=== PATIENT | female | born 1980 | race Caucasian/White ===

== ENCOUNTER 2016-10-24 04:58 | Emergency (ER) | payer BC ==
[~2016-10-24] VITALS: Ht 182.9 cm; Wt 79.7 kg
[2016-10-24 04:58] VITALS: Ht 182.9 cm; Wt 79.7 kg
[~2016-10-24 04:58] MED LIST: BENA5TAB PO; BENZ100C97 PO; CYAN500T2 PO; LEVO175T9 PO; NIAC500T22 PO; PROP80CA2 PO; SUMA25TA PO; [UNRECOGNIZED DRUG - OTHER] PO
--- OUTSIDE RECORDS SUMMARY | 2016-10-24 05:02 | XMS REPORT | Continuity of Care Document ---
Author Author [facility] Organization [facility] Address Unknown Phone Unavailable Care Team Providers Care Assistant Community Manager Name Role Phone CHRISTOPHER ORNELAS MD Primary Care Physician [phone] Insurance Providers Guarantor Massiel Jara Address [address] [place] [address] Email [email or web address] Payer [facility] Policy Number [id number] Subscriber's Name Temo Jara Relationship 01 Spouse Group Number [id number] Chief Complaint and Reason for Visit Chief Complaint Cough,Fever,Flu,URI Reason for Visit Viral syndrome Problems Active Problems Medical Problem Onset Date Status Cephalgia consistent with Migraine Unknown Acute Cephalgia consistent with Migraine Unknown Acute Viral syndrome Unknown Acute Medications Current Home Medications Medication Dose Units Route Directions Days Qty Instructions Start Date Benazepril Hcl 5 Mg Tablet 5 Mg Oral Twice A Day 03/20/13 Benzonatate (Tessalon Perle) 100 Mg Capsule 100 Mg Oral Every 8 Hours for Cough 5 Days 15 Capsule 08/17/16 Cyanocobalamin (Vitamin B-12) (Vitamin B-12) 500 Mcg Tablet 1 Tab Oral Daily 02/11/16 Levothyroxine Sodium 175 Mcg Tablet 175 Mcg Oral Before Breakfast Once daily before breakfast. 02/11/16 Magsalt 1 1 Tab Oral As Needed 07/23/13 Niacinamide (Niacin) 500 Mg Tablet 1 Tab Oral Daily 02/11/16 Propranolol Hcl 80 Mg Cap.sa.24h 80 Mg Oral Daily 02/11/16 Sumatriptan (Imitrex) 25 Mg Tablet 1 Tab Oral As Needed 02/11/16 Past Home Medications Medication Directions Ordered Status Ascorbic Acid (Vitamin C) 100 Mg Tablet, 100 Mg Oral 09/17/09 Discontinued Benazapril , 09/17/09 Discontinued Calcium 500 Mg Tablet, 500 Mg Oral Daily 09/17/09 Discontinued Ciprofloxacin Hcl 500 Mg Tablet, 500 Mg Oral Twice A Day 03/20/13 Discontinued Levothyroxine Sodium 200 Mcg Tablet, 1 Tab Oral Daily 03/20/13 Discontinued Vits W-Ca,Fe,Fa(<1MG) () 1 Tab Tablet, 1 Tab Oral Daily 03/07 Discontinued Synthroid , 09/17/09 Discontinued Social History Social History Problem Response Recorded Date/Time Onset Date Status Hx Substance Use No 02/14/2016 9:36am Not Applicable Not Applicable Hx Alcohol Use Y OCC 02/14/2016 9:36am Not Applicable Not Applicable Has the pt used tobacco in the last 12 months No 02/14/2016 9:36am Not Applicable Not Applicable Hospital Discharge Instructions No hospital discharge instructions. Plan of Care Discharge Date 08/17/16 12:15pm Disposition 01 DISCHARGED HOME, SELF-CARE Condition at Discharge Stable Instructions/Education Provided DI for Viral Upper Respiratory Infection -- Adult Prescriptions See Medication Section Referrals CHRISTOPHER ORNELAS MD Address: [address] [place] [id number] Functional Status No functional status results. Allergies, Adverse Reactions, Alerts Allergen Type Severity Reaction Status Last Updated No Known Drug Allergies Allergy Unknown Active 08/17/16 Immunizations Query Response on File Recorded Date/Time Hx Influenza Vaccination Y APR 2015 02/14/16 9:36am Hx Pneumococcal Vaccination No 02/14/16 9:36am Hx Influenza Vaccination Y APR 2015 02/14/16 9:36am Influenza Vaccine Hx APR 2016 08/17/16 11:45am Tetanus Diptheria Vaccine History UP TO DATE 08/17/16 11:45am Vital Signs Acute Vital Signs Vital Response Date/Time Temperature (Fahrenheit) 97.7 deg F (96.8 - 99.1) 08/17/2016 11:50am Temperature (Calculated Celsius) 36.98728 degrees C (36.0 - 37.3) 08/17/2016 11:50am Pulse Rate (adult) 94 bpm (60 - 100) 08/17/2016 11:50am Respiratory Rate 14 breaths/min (10 - 20) 08/17/2016 11:50am O2 Sat by Pulse Oximetry 98 % (90 - 100) 08/17/2016 11:50am Blood Pressure 122/85 mm Hg 08/17/2016 11:50am Height (Inches) 72.00 inches 08/17/2016 11:50am Weight (Kilograms) 84.000 kg 08/17/2016 11:50am Body Mass Index (BMI) 25.0 08/17/2016 11:50am Results Laboratory Results Test Name Result Units Flags Reference Collection Date/Time Result Date/ Time Comments Influenza Type A Antigen NEGATIVE NEGATIVE 08/17/2016 12:00pm 2016 12:21pm Negative for Flu A protein antigen. Assay sensitivity is 90%. Influenza Type B Antigen NEGATIVE NEGATIVE 08/17/2016 12:00pm 2016 12:21pm Negative for Flu B protein antigen. Assay sensitivity is 90%. Procedures Procedure Status Date Provider(s) Injection for shoulder x-ray Completed 06/27/16 TEMO PIERRE MD Mri joint upr extrem w/dye Completed 06/27/16 Needle localization by xray Completed 06/27/16 GADAVIST 10ML SDV - Contrast,Gadavist 10ml Completed 06/27/16 079970"INFUSION, NORMAL SALINE SOLUTION , 250 CC" Completed 06/27/16 [id number]"HIGH OSMOLAR CONTRAST MATERIAL, 250-299 MG/ML IODINE Completed Encounters Encounter Location Arrival/Admit Date Discharge/Depart Date Attending Provider Departed Emergency Room [facility] 08/17/16 11:38am 08/17/16 12: 15pm PRISCILLA MCFARLANE APRN Registered Clinic [facility] 06/27/16 12:35pm FRANDY TEE MD Recent Diagnosis
--- NOTE | 2016-10-24 05:12 | NUR ---
PROVIDER DR CALIX IN ROOM TO SEE PT
[2016-10-24] MEDS ORDERED: RIZA10TA24 PO (05:16)
--- NOTE | 2016-10-24 05:19 | ERPDOC ---
Departure Disposition Decision Date: Oct 24, 2016 Disposition Decision Time: 05:19 Disposition: 01 DISCHARGED HOME, SELF-CARE Impression Impression Impression: Primary Impression: Cephalgia consistent with Migraine Severity: Moderate Condition: Stable Seen By: Physician only Referrals: CHRISTOPHER ORNELAS MD (PCP/Family) Patient Instructions: Migraine Headache (ED) Problems/Meds/Labs Reviewed?: Yes Medications reviewed and manag: Yes Additional Instructions: Please see your primary care provider in the next day or 2 to follow-up on the headache. Follow up care ordered?: Yes Mental Status: Alert, Oriented HPI - Headache General Chief Complaint: Headache Stated Complaint: migraine Time Seen by Provider: 05:11 HPI - Headache Initial Comments 36-year-old female presents with migraine which started yesterday morning. She states she has taken 2 doses of Imitrex and 2 doses of Lortab which have not worked. She has had nausea vomiting, headache which she rates as 9 out of 10, photophobia, and has been up all night crying with headache. She states last time she was treated was a little over a month ago she had 5 days of Demerol shots in the clinic. She has tried Zofran which has not helped with the nausea. Allergies: Coded Allergies: No Known Drug Allergies (Verified Allergy, Unknown, 08/17/16) Past History Past Medical History Pt denies signifigant PMH Hx Echocardiogram: No Female: other Neurological: headaches, migraines Surgical History Reproductive/: tubal ligation Family History Family PMH: FOUND: other Vaccines Hx Influenza Vaccination: Yes (APR 2015) Hx Pneumococcal Vaccination: No Social History Smoking Status: Never smoker Does patient use chewing tobac: No Substance Use Type: does not use Alcohol Intake: none Record Review Pertinent history updated: Yes Review of Systems GI Upper Abdomen: see HPI Neurological General: see HPI All other Systems All Other Systems: Reviewed and Negative Physical Exam General General Nourishment: well nourished, well developed Distress Description Patient is tearful, with headache Vitals and Pain First Documented Vital Signs Date Time Temp Pulse Resp B/P Pulse Ox O2 Delivery O2 Flow Rate FiO2 10/24/16 04:58 97.8 66 16 137/84 99 Room Air Weight: Kilograms: 79.700 Height (feet): 6 Height (inches): 0 Triage Pain Scale: Normal Exams: Head: Normocephalic w/o trauma Eyes: Pupils are PERRLA w/ EOMI, No scleral icterus, irritation, or foreign bodies noted Neck: Full range of motion, without adenopathy, JVD, bruits or thyromegaly Chest/Resp: Clear all mcdowell, with good airflow, and symmetry bilaterally CV: Regular rate and rhythm, without murmur or gallop, Pulses 2+ all extremities, capillary refill, <2 seconds all ext., no pedal edema noted Neurologic: Patient is alert, and oriented, cranial nerves, motor/sensory/ cerebellar, exams w/o gross deficits, to observation Psychiatric: Patient exhibits, appropriate attention, emotion and affect Differential Diagnoses Considering: Cervical Strain, CVA - Thrombotic, CVA - Hemorrhagic, Headache, Headache - Migraine, Headache - Tension/Muscle, Meningitis, Sinusitis - Frontal , Sub-arachnoid Hemorrhage, Temporal Arteritis, Toothache, Trigeminal Neuralgia , Vasculitis Progress Results/Orders Orders Procedure Category Date Status Time Iv Lock (Ed Only) EDM 10/24/16 Transmitted 05:21 Normal Saline (Normal PHA 10/24/16 Complete Saline Iv) 05:30 Orphenadrine (Norflex) PHA 10/24/16 Complete 05:30 Promethazine PHA 10/24/16 Complete (Phenergan) 05:30 Ketorolac (Toradol) PHA 10/24/16 Complete 05:30 Morphine Sulfate PHA 10/24/16 Complete (Morphine) 05:30 Medications Current ED Medications Sodium Chloride (Normal Saline IV) 1,000 ml @ 0 mls/hr Q0M ONCE IV Last administered on 10/24/16 05:41; Start 10/24/16 at 05:30; Stop 10/24/16 at 05:32 ; Status DC Orphenadrine Citrate (Norflex) 60 mg O ONCE IV Last administered on 10/24/16 05:48; Start 10/24/16 at 05:30; Stop 10/24/16 at 05:32; Status DC Promethazine HCl (Phenergan) 25 mg O ONCE IV Last administered on 10/24/16 05 :43; Start 10/24/16 at 05:30; Stop 10/24/16 at 05:32; Status DC Ketorolac Tromethamine (Toradol) 30 mg O ONCE IV Last administered on 05:41; Start 10/24/16 at 05:30; Stop 10/24/16 at 05:32; Status DC Morphine Sulfate (Morphine) 2 mg O ONCE IV Last administered on 10/24/16t 05: 46; Start 10/24/16 at 05:30; Stop 10/24/16 at 05:32; Status DC Progress Progress I explained that we are trying to minimize use of narcotics in the emergency department. Patient will have 1 L of normal saline IV, morphine 2 mg IV, Toradol 30 mg IV, Norflex 60 mg IV and Phenergan 25 mg IV. She did have an MRI one year ago which was normal of the brain. ALEJA CALIX MD Oct 24, 2016 05:19
[2016-10-24] MEDS ORDERED: NORMAL SALINE 1,000 ML IV ONE (05:30)
[2016-10-24] MEDS ORDERED: KETOROLAC 30mg/ml INJECTION IV ONE (05:30)
[2016-10-24] MEDS ORDERED: ORPHENADRINE 60mg/2ml INJECTION IV ONE (05:30)
[2016-10-24] MEDS ORDERED: PROMETHAZINE 25 MG INJECTION IV ONE (05:30)
[2016-10-24] MEDS ORDERED: MORPHINE SULFATE 2 MG SYRINGE IV ONE (05:30)
--- NOTE | 2016-10-24 05:40 | NUR ---
IVL IVL STARTED
--- NOTE | 2016-10-24 05:55 | NUR ---
MEDS AL IV MEDS ARE GIVEN TO DECREASE MIGRAINE PA IN. IVF INFUSING
--- NOTE | 2016-10-24 05:59 | NUR ---
STATUS WENT TO WAITING ROOM TO GIVE REPORT. HE WILL BE BACK AROUND 7 AND PICK HER UP
[2016-10-24 06:52] VITALS: BP 134/88; PULSE 61; RESP 16; TEMP 98; O2SAT 100
--- NOTE | 2016-10-24 06:52 | NUR ---
DISMISSAL INSTRUCTIONS REVIEWED. PT FEELS BETTER. DISCHARGED AMB
== END 2016-10-24 06:52 | disposition home or self-care (01) ==
LOC: ED 04:58
DX: R51 Headache (principal); R11.2 Nausea with vomiting, unspecified; H53.149 Visual discomfort, unspecified
CPT/HCPCS: 96361; 96374; 96375; 99284; J1885; J2360; J2550; J7030

== ENCOUNTER 2017-02-10 06:08 | Inpatient (IN) ==
--- NOTE | 2017-02-10 06:28 | Emergency Department Report ---
Abdominal Pain HPI - General Chief Complaint: Back Pain/Injury Stated Complaint: kidney pain Time Seen by Provider: 02/10/17 06:28 Source: patient Mode of arrival: ambulatory Limitations: no limitations - History of Present Illness HPI narrative: Patient is a 36-year-old female presents to the emergency department for evaluation of bilateral flank pain. Patient started developing urinary symptoms of urgency and frequency on Sunday, did not do anything about it. This morning approximately 1 AM patient woke up with severe bilateral flank pain , right greater than left. Patient's had subjective fevers and chills nausea no vomiting no change in bowel movements. Patient's pain quickly became severe this morning so she decided present to the ER for evaluation currently complaining of 10 out of 10 bilateral flank pain, right greater than left MD complaint: flank pain Onset (ago): hour(s) (6) Consistency: constant Location: L flank, R flank Severity: severe Severity scale (1-10): 10 Quality: stabbing Radiation: none Migration to: no migration Relieving factors: nothing Associated symptoms: nausea, fever, chills, dysuria - Related Data Home Medications Medication Instructions Recorded Confirmed Benazepril HCl 5 mg PO BID #0 03/20/13 02/10/17 Cyanocobalamin (Vitamin B-12) 1 tab PO DAILY #0 tab 02/11/16 02/10/17 [Vitamin B-12] Propranolol HCl [Propranolol HCl 80 mg PO DAILY #0 cap 02/11/16 02/10/17 ER] Rizatriptan Benzoate [Maxalt] 1 tab PO PRN PRN #9 tab 10/24/16 calcium carbonate-vitamin D3 600 1 cap PO DAILY cap 01/05/17 02/10/17 mg calcium-200 unit capsule cholecalciferol (vitamin D3) 1,000 1,000 unit PO BID 01/05/17 02/10/17 unit capsule multivitamin capsule 1 cap PO QAM 01/05/17 02/10/17 ondansetron HCl 4 mg tablet 4 mg PO Q4H PRN 01/05/17 02/10/17 Levothyroxine Sodium [Levoxyl] 150 mcg PO DAILY 02/10/17 02/10/17 Previous Rx's Medication Instructions Recorded sertraline 25 mg tablet 25 mg PO Q24H #90 tab 06/09/17 alprazolam 0.25 mg tablet 0.25 mg PO BID PRN #30 tab 01/07/17 Allergies Allergy/AdvReac Type Severity Reaction Status Date / Time No Known Drug Allergies Allergy Unknown Verified 02/10/17 06:18 Review of Systems Constitutional: Reports: fever, chills. Denies: weakness ENT: Denies: ear pain, throat pain, dental pain, congestion Cardiovascular: Denies: chest pain, palpitations Respiratory: Denies: cough, dyspnea, wheezes Gastrointestinal: Reports: abdominal pain, nausea. Denies: vomiting, diarrhea, constipation Genitourinary: Reports: urgency, dysuria, frequency Musculoskeletal: Reports: back pain Neurological: Denies: headache, weakness, numbness Psychiatric: Denies: anxiety, depression Endocrine: Denies: fatigue [facility] Medical History (Last Updated 01/05/17 @ 09:27 by Meghna June Liliane) CKD (chronic kidney disease) (Chronic Medical) Gestational diabetes (Chronic Medical) HTN (hypertension) (Chronic Medical) Hypothyroidism (Chronic Medical) Polycystic kidney (Chronic Medical) Pre-eclampsia (Chronic Medical) Surgical History: . Tubal ligation Family History: Family History Paternal Grandfather Type 1 diabetes Maternal Grandmother Rheumatoid arthritis Daughter Juvenile rheumatoid arthritis Polycystic kidney Paternal Grandmother Rheumatoid arthritis Mother , 51 Polycystic kidney Myocarditis HTN (hypertension) Renal failure Kidney transplant recipient - Social History Smoking status: Never smoker Substance use type: does not use Alcohol intake frequency: does not drink Physical Exam - General General appearance: alert, in distress - Head Head exam: normocephalic, normal inspection - ENT ENT exam: Present: normal exam, normal oropharynx - Neck Neck exam: Present: full ROM - Chest Chest inspection: Present: symmetric chest wall rise. Absent: tenderness - Respiratory Respiratory exam: Present: normal lung sounds bilaterally. Absent: respiratory distress, wheezes, stridor - Cardiovascular Cardiovascular exam: Present: regular rate, normal rhythm, normal heart sounds - Abdominal Exam Abdominal exam: Present: soft, tenderness (mild diffuse tenderness). Absent: distention - Extremities Exam Extremities exam: Present: full ROM - Back Exam Back exam: Present: full ROM - Skin Skin exam: Present: warm, dry, intact - Neurological Exam Neurological exam: Present: alert, oriented X3 Course - Consultations Consultation #1: Dr. Jose F Hector, primary care physician Time: 08:35 (no response) Consultation #2: Dr. Jose F Hector Time: 09:04 (no response) Consultation #3: Dr. Hector Time: 09:31 (Dr. Hector states he is checked out to the hospitalist service) Additional Consultation(s): Hospitalist service, 09:37 Dr. Varghese will admit Vital Signs Temperature 98.2 F 02/10/17 06:09 Pulse Rate 56 L 02/10/17 06:09 Respiratory Rate 24 02/10/17 06:09 Blood Pressure 108/55 02/10/17 06:09 Pulse Oximetry 100 02/10/17 06:09 Temperature 98.2 F 02/10/17 06:09 Pulse Rate 56 L 02/10/17 06:09 Respiratory Rate 24 02/10/17 06:09 Blood Pressure 108/55 02/10/17 06:09 Pulse Oximetry 100 02/10/17 06:09 Abdominal Pain - Differential Diagnosis Differential diagnosis: Likely: abdominal pain, acute appendicitis, calculus of kidney, constipation, diverticulitis, other (pyelonephritis), small bowel obstruction - Medical Records Attestation: I reviewed the patient's medical records. - Lab Data Attestation: I reviewed the patient's lab results. Result diagrams: 02/10/17 06:34 02/10/17 06:34 - Radiology Data Attestation: I reviewed the patient's radiology results. CT scan abdomen noncontrast: Large innumerable cysts, no obvious stones Disposition Clinical Impression: Pyelonephritis Disposition: 02 To [facility] [place] Acute Care Condition: Stable Prescriptions: No Action Rizatriptan Benzoate [Maxalt] 1 tab PO PRN PRN #9 tab PRN Reason: HEADACHE Levothyroxine Sodium [Levoxyl] 150 mcg PO DAILY Benazepril HCl 5 mg PO BID #0 Propranolol HCl [Propranolol HCl ER] 80 mg PO DAILY #0 cap Cyanocobalamin (Vitamin B-12) [Vitamin B-12] 1 tab PO DAILY #0 tab Referrals: Vince Eduardo MD [Family Provider] - Time of Disposition: 09:49 - Seen By: physician
[2017-02-10] MEDS ORDERED: ONDANSETRON 4 MG/2 ML INJECTION IVP ONE (06:29)
[2017-02-10] MEDS ORDERED: MORPHINE SULFATE 4 MG SYRINGE IVP ONE ×2 (06:29→09:47)
[2017-02-10] MEDS ORDERED: NS 1,000 ML IV ONE (06:30)
[2017-02-10] MEDS ORDERED: CIPROFLOXACIN PB 400 MG/200 ML BAG IV SCH ×2 (07:15→11:15)
[2017-02-10] MEDS: SALINE FLUSH 10ml SYRINGE IVF PRN ×2 (10:10→21:15)
[2017-02-10 10:50] VITALS: BMI 25.4
[2017-02-10] MEDS ORDERED: ONDANSETRON 4 MG/2 ML INJECTION IVP PRN (11:02)
--- NOTE | 2017-02-10 11:12 | History & Physical Report ---
History of Present Illness Date: 02/10/17 Chief complaint: right-sided flank pain HPI: This is a 36-year-old female presents with right-sided flank pain that progressively been getting worse past week. She states that this felt like a cyst rupture that she's had in the past along with a kidney infection that she 's had in the past. She states that she was taking antibiotics (amoxicillin) for a tooth infection and while she was taking this the pain improved. However, once that finished the pain came back. She complains of nausea and vomiting. She states that she has intense pain with urination but no blood. She denies fever chills or night sweats. She denies chest pain shortness of breath or diaphoresis. She denies any diarrhea or constipation. She states that she takes her medications as prescribed. Review of Systems All systems: reviewed and no additional remarkable complaints except as stated PFSH Patient Stated Medical History Migraine Yes Hypertension Yes: ON MEDS Gastroesophageal Reflux Yes Disease Other Yes: HX KIDNEY INFECTIONS Other Musculoskeletal Yes: SCOLIOSIS Depression Yes Post Traumatic Stress Disorder Yes Clinic Medical History (Last Updated 02/10/17 @ 09:49 by Harvey Gutierrez MD) CKD (chronic kidney disease) (Chronic Medical) Gestational diabetes (Chronic Medical) HTN (hypertension) (Chronic Medical) Hypothyroidism (Chronic Medical) Polycystic kidney (Chronic Medical) Pre-eclampsia (Chronic Medical) Surgical History: . Tubal ligation Family History: Family History Paternal Grandfather Type 1 diabetes Maternal Grandmother Rheumatoid arthritis Daughter Juvenile rheumatoid arthritis Polycystic kidney Paternal Grandmother Rheumatoid arthritis Mother , 51 Polycystic kidney Myocarditis HTN (hypertension) Renal failure Kidney transplant recipient - Social History Smoking status: Never smoker Alcohol intake frequency: a few times a month Medications Home Medications Medication Instructions Recorded Confirmed Type Benazepril HCl 5 mg PO BID #0 03/20/13 02/10/17 History Cyanocobalamin (Vitamin B-12) 1 tab PO DAILY #0 tab 02/11/16 02/10/17 History [Vitamin B-12] Propranolol HCl [Propranolol HCl 80 mg PO DAILY #0 cap 02/11/16 02/10/17 History ER] Rizatriptan Benzoate [Maxalt] 1 tab PO PRN PRN #9 tab 10/24/16 02/10/17 History calcium carbonate-vitamin D3 600 1 cap PO DAILY cap 01/05/17 02/10/17 History mg calcium-200 unit capsule cholecalciferol (vitamin D3) 1,000 1,000 unit PO BID 01/05/17 02/10/17 History unit capsule multivitamin capsule 1 cap PO QAM 01/05/17 02/10/17 History ondansetron HCl 4 mg tablet 4 mg PO Q4H PRN 01/05/17 02/10/17 History Levothyroxine Sodium [Levoxyl] 150 mcg PO DAILY 02/10/17 02/10/17 History Allergies Allergy/AdvReac Type Severity Reaction Status Date / Time No Known Drug Allergies Allergy Unknown Verified 02/10/17 06:18 Exam Vital Signs: Temperature 96.4 F L 02/10/17 10:30 Pulse Rate 53 L 02/10/17 10:30 Respiratory Rate 18 02/10/17 10:30 Blood Pressure 120/74 02/10/17 10:30 Pulse Oximetry 96 02/10/17 10:30 Oxygen Delivery Method Room Air Gen.-awake alert oriented 3, no acute distress. HEENT-PERRLA EOMI. Neck-supple, no JVD, no bruits. Cardiovascular-regular rate and rhythm, no murmurs rubs or gallops. Lungs-clear to auscultation bilaterally. Abdomen-tender to palpation in the right flank and suprapubic region. Extremities-no edema cyanosis or clubbing. Neurological-nonfocal. Rectal-deferred. Genitourinary-deferred. Skin-warm dry and intact without any evidence of rashes. Height: 6 ft Weight: 85 kg Body Mass Index: 25.4 Results - Labs CBC & Chem 7: 02/10/17 06:34 02/10/17 06:34 Assessment and Plan Assessment and Plan: # Acute Pyelonephritis - history of enterobacter in the past which was sensitive to cipro. Will start cipro, IVF and antiemetics. Advance diet as tolerated. # CKD stage III - secondary to Polycystic KD. Monitor. # Polycystic KD - treat supportively and monitor renal function. # HTN - continue BB. Hold ACEI. Sepsis Assessment - Evaluation Sepsis screening result: No Definite Risk Hospital Course Summary Disclaimer: The visit summary below is not to be considered part of the above Progress Note.
[2017-02-10] MEDS: NS 1,000 ML IV SCH ×2 (11:15→22:28)
[2017-02-10] MEDS: MORPHINE SULFATE 2 MG SYRINGE IVP PRN ×2 (15:15→21:15)
[2017-02-10] MEDS: CIPROFLOXACIN PB 400 MG/200 ML BAG IV SCH (18:38)
[2017-02-11] MEDS: CIPROFLOXACIN PB 400 MG/200 ML BAG IV SCH ×2 (06:25→18:51)
[2017-02-11] MEDS: LEVOTHYROXINE 150 MCG TABLET PO SCH (06:25)
[2017-02-11] MEDS: NS 1,000 ML IV SCH ×2 (09:39→21:38)
[2017-02-11] MEDS: PROPANOLOL 80 MG PO SCH (09:40)
--- NOTE | 2017-02-11 10:35 | CT Scan Report ---
Indication: bilateral flank pain, family history stones PROCEDURE: CT renal wo con (stone bogdan): Encounter: Initial Comparison: Renal CT dated March 20, 2013 Technique: Axial CT images were performed through the abdomen and pelvis without intravenous contrast. Coronal and sagittal two-dimensional reformats. Automated Exposure Control and Iterative Reconstruction dose reducing techniques were utilized. Findings: Atelectasis in the lung bases. Findings of autosomal dominant polycystic kidney disease with innumerable cysts throughout both kidneys including multiple hyperdense and partially calcified cysts. Numerous hepatic cysts. The gallbladder is unremarkable. The spleen, pancreas and adrenal glands are within normal limits. Small possible renal stones versus partially calcified cysts. No obvious ureteral stone or hydronephrosis. Bladder appears normal. Tubal ligation clips seen in the pelvis. Prominent right ovarian cyst measuring 4.6 cm in diameter. No evidence of a bowel obstruction. Bone windows show significant scoliotic curvature in the spine. Impression: Polycystic kidney disease. Right ovarian cyst. No clear acute disease process. There is a preliminary report by [facility]. .
--- NOTE | 2017-02-11 11:10 | Progress Note ---
Subjective: Feels better. Still requiring narcotics for pain control and she does not want to take them. Nausea is resolved. Flank pain is resolved. Case discussed with family at bedside. Objective Vital signs: Temperature 97.5 F 02/11/17 08:10 Pulse Rate 55 L 02/11/17 08:10 Respiratory Rate 16 02/11/17 08:10 Blood Pressure 110/64 02/11/17 08:10 Pulse Oximetry 96 02/11/17 08:10 Oxygen Delivery Method Room Air Gen.-awake alert oriented 3, no acute distress. HEENT-PERRLA EOMI. Neck-supple, no JVD, no bruits. Cardiovascular-regular rate and rhythm, no murmurs rubs or gallops. Lungs-clear to auscultation bilaterally. Abdomen-benign. Extremities-no edema cyanosis or clubbing. Neurological-nonfocal. Rectal-deferred. Genitourinary-deferred. Skin-warm dry and intact without any evidence of rashes. Weight: 85.3 kg Results - Labs CBC & Chem 7: 02/11/17 08:26 02/11/17 04:56 Assessment and Plan Assessment and Plan: # Acute Pyelonephritis - E Coli. Clinically improving. Continue cipro and IVF. # CKD stage III - secondary to Polycystic KD. Stable. # Polycystic KD - treat supportively and monitor renal function. # HTN - continue BB. Hold ACEI. # NAG Metabolic acidosis - continue IVF. # Dispo - DC home tomorrow if pain controlled off of narcotics. Sepsis Assessment - Evaluation Sepsis screening result: No Definite Risk Hospital Course Summary Disclaimer: The visit summary below is not to be considered part of the above Progress Note.
[2017-02-11] MEDS: ACETAMINOPHEN 325 MG TABLET PO PRN (13:03)
[2017-02-12] MEDS: CIPROFLOXACIN PB 400 MG/200 ML BAG IV SCH (06:25)
[2017-02-12] MEDS: LEVOTHYROXINE 150 MCG TABLET PO SCH (06:25)
[2017-02-12] MEDS: NS 1,000 ML IV SCH (06:27)
[2017-02-12] MEDS: ACETAMINOPHEN 325 MG TABLET PO PRN (06:36)
[2017-02-12 07:24] VITALS: PULSE 67; RESP 16; TEMP 99.1; O2SAT 97
[2017-02-12] MEDS: PROPANOLOL 80 MG PO SCH (09:02)
[2017-02-12 09:05] VITALS: BP 122/72
--- NOTE | 2017-02-12 09:11 | Discharge Instructions ---
Discharge Plan - Med Rec/Dispo [place] Instructions: Urinary Tract Infection in Women (GEN) Prescriptions: New RX: Tramadol [Ultram] 50 mg PO Q4HR PRN #30 tab PRN Reason: Pain RX: Ciprofloxacin [Cipro] 500 mg PO BID #12 tablet Continue RX: Rizatriptan Benzoate [Maxalt] 1 tab PO PRN PRN #9 tab PRN Reason: HEADACHE RX: Levothyroxine Sodium [Levoxyl] 150 mcg PO DAILY RX: Benazepril HCl 5 mg PO BID #0 RX: Propranolol HCl [Propranolol HCl ER] 80 mg PO DAILY #0 cap RX: Cyanocobalamin (Vitamin B-12) [Vitamin B-12] 1 tab PO DAILY #0 tab Discharge Instructions/Outpatient Orders: Final Provider Discharge Instructions Location: Determined By Patient - Disposition 01 Discharged Home, Self-Care
--- NOTE | 2017-02-12 11:49 | Discharge Summary ---
Discharge Information Date of admission: 02/10/17 10:10 Attending Physician: Stalin Root MD Primary care physician: Vince Eduardo MD - Laboratory Labs: 02/12/17 04:44 02/12/17 04:44 History of Present Illness HPI: This is a 36-year-old female presents with right-sided flank pain that progressively been getting worse past week. She states that this felt like a cyst rupture that she's had in the past along with a kidney infection that she 's had in the past. She states that she was taking antibiotics (amoxicillin) for a tooth infection and while she was taking this the pain improved. However, once that finished the pain came back. She complains of nausea and vomiting. She states that she has intense pain with urination but no blood. She denies fever chills or night sweats. She denies chest pain shortness of breath or diaphoresis. She denies any diarrhea or constipation. She states that she takes her medications as prescribed. Objective Vital signs: Temperature 99.1 F 02/12/17 07:23 Pulse Rate 67 02/12/17 07:23 Respiratory Rate 16 02/12/17 07:23 Blood Pressure 122/72 02/12/17 09:00 Pulse Oximetry 97 02/12/17 07:23 Oxygen Delivery Method Room Air Weight: 85.1 kg - Constitutional Present: no acute distress - Routine HEENT Exam Head: Present: normocephalic, atraumatic Eye: Present: EOMI, PERRL ENT: Present: mucous membranes moist - Routine Respiratory Exam Present: CTA bilaterally - Routine Cardiovascular Exam Present: RRR, S1, S2, no murmur - Routine Abdominal Exam Present: soft, normoactive bowel sounds, non distended, non tender - Routine Extremities Exam Present: no edema, full ROM - Routine Back/Spine/Pelvis Exam Back/Spine: Present: full ROM - Routine Musculoskeletal Exam Musculoskeletal: Present: no clubbing or cyanosis - Routine Skin Exam Present: intact, dry, warm - Routine Neurological Exam Present: alert, oriented X3, CN II-XII intact - Routine Psychiatric Exam Present: normal affect, normal thought process Hospital Course This is a general summary of the patient's hospital course. For more details refer to the complete medical record. This is a 36-year-old female admitted for acute pyelonephritis. Urine culture grew out Escherichia coli. This is sensitive to Cipro. She received IV fluids during her hospitalization. Her pain is well controlled with Ultram. She is refusing narcotics at this time. Her renal function remained at baseline from her polycystic kidney disease. All cultures were negative. She is back to baseline at time of discharge. Time spent with patient: 25 - 35 minutes Discharge Plan - Med Rec/Dispo [place] Instructions: Urinary Tract Infection in Women (GEN) Prescriptions: New RX: Tramadol [Ultram] 50 mg PO Q4HR PRN #30 tab PRN Reason: Pain RX: Ciprofloxacin [Cipro] 500 mg PO BID #12 tablet Continue RX: Rizatriptan Benzoate [Maxalt] 1 tab PO PRN PRN #9 tab PRN Reason: HEADACHE RX: Levothyroxine Sodium [Levoxyl] 150 mcg PO DAILY RX: Benazepril HCl 5 mg PO BID #0 RX: Propranolol HCl [Propranolol HCl ER] 80 mg PO DAILY #0 cap RX: Cyanocobalamin (Vitamin B-12) [Vitamin B-12] 1 tab PO DAILY #0 tab Discharge Instructions/Outpatient Orders: Final Provider Discharge Instructions Location: Determined By Patient - Disposition 01 Discharged Home, Self-Care
[2017-02-12] MEDS ORDERED: TRAMADOL 50 MG TABLET PO SCH (13:00)
== END 2017-02-12 12:15 | disposition home or self-care (01) | DRG 690 ==
LOC: ED 06:08 → MED 10:10
PROVIDERS: ADMIT Internal Medicine; ATTEND Internal Medicine